=== PATIENT | female | born 1945 | race African-American/Black ===

== ENCOUNTER 2018-03-26 03:10 | Emergency (ER) | payer MEDICARE, MEDICAID ==
[~2018-03-26] VITALS: Ht 165.1 cm; Wt 77.0 kg
[~2018-03-26 03:10] MED LIST: ALBU4TAB6 PO; ASPI-785 PO; ATOR40TA70 PO; BACL20TA PO; BENA40TA9 PO; CALC-4 PO; HYDR25TA PO; IBUP-2029 PO; NIFE30TA94 PO; TOPI25TA48 PO; topamax
[2018-03-26] MEDS ORDERED: KETOROLAC 30MG/ML VIAL IV ONE (08:00)
[2018-03-26 08:10] LABS: BASOPHILS % 0.4 % (0.0-2.0); EOSINOPHILS % 0.4 % (0.0-5.0); HEMATOCRIT. 37.7 % (36.0-48.0); HEMOGLOBIN. 12.5 g/dL (12.0-16.0); LYMPHOCYTES % 32.3 % (20.0-50.0); MEAN CORPUSCULAR HEMOGLOBIN 31.4 pg (28.0-32.0); MEAN CORPUSCULAR VOLUME 94.8 fL (81.0-99.0); MEAN PLATELET VOLUME 8.9 fl (7.4-10.4); MONOCYTES % 6.6 % (2.0-8.0); NEUTROPHILS % 60.3 % (40.0-76.0); PLATELET 191 x1000/uL (130-400); RED BLOOD CELL COUNT 3.98 mill/uL (4.2-5.4); RED CELL DISTRIBUTION WIDTH 16.2 % (11.6-14.6)
[2018-03-26 08:11] LABS: CLARITY URINE CLEAR (CLEAR); COLOR URINE YELLOW (YELLOW); KETONES URINE NEGATIVE (NEGATIVE); LEUKOCYTE ESTERASE URINE TRACE (NEGATIVE); NITRITE URINE NEGATIVE (NEGATIVE); OCCULT BLOOD URINE NEGATIVE (NEGATIVE); PROTEIN URINE NEGATIVE (NEGATIVE); SPECIFIC GRAVITY URINE 1.019 (1.005-1.030)
[2018-03-26 08:15] LABS: CHLORIDE 106 mEq/L (98-107)
[2018-03-26 10:35] VITALS: BP 168/72
== END 2018-03-26 10:40 | disposition home or self-care (01) ==
LOC: ER 03:10
DX: S20.211A Contusion of right front wall of thorax, initial encounter (principal); J44.9 Chronic obstructive pulmonary disease, unspecified; I10 Essential (primary) hypertension; I25.2 Old myocardial infarction; F17.200 Nicotine dependence, unspecified, uncomplicated; W01.0XXA Fall on same level from slipping, tripping and stumbling without subsequent striking against object, initial encounter; Y93.89 Activity, other specified; Y92.89 Other specified places as the place of occurrence of the external cause; Y99.8 Other external cause status; Z90.710 Acquired absence of both cervix and uterus; Z79.82 Long term (current) use of aspirin; Z79.899 Other long term (current) drug therapy
CPT/HCPCS: 36415; 71111; 80053; 81003; 85025; 96374; 99284; J1885

== ENCOUNTER 2018-04-26 06:04 | Emergency (ER) | payer MEDICARE, MEDICAID ==
[~2018-04-26] VITALS: Ht 165.1 cm; Wt 72.0 kg
[2018-04-26] MEDS ORDERED: METHYLPREDNISOLONE SOD SUCC 125 MG/2 ML VIAL IV STA (06:17)
[2018-04-26] MEDS ORDERED: IPRATROPIUM BROMIDE (0.02%) 0.5MG/2.5ML NEB HHN STA (06:17)
[2018-04-26] MEDS: ALBUTEROL (0.083%) 2.5MG/3ML NEB HHN SCH ×3 (06:45→07:30)
[2018-04-26 07:00] LABS: BASOPHILS % 0.5 % (0.0-2.0); HEMATOCRIT. 36.7 % (36.0-48.0); HEMOGLOBIN. 12.1 g/dL (12.0-16.0); LYMPHOCYTES % 33.1 % (20.0-50.0); MEAN CORPUSCULAR HEMOGLOBIN 30.6 pg (28.0-32.0); MEAN CORPUSCULAR VOLUME 92.6 fL (81.0-99.0); MEAN PLATELET VOLUME 9.2 fl (7.4-10.4); MONOCYTES % 9.9 % (2.0-8.0); NEUTROPHILS % 55.5 % (40.0-76.0); PLATELET 167 x1000/uL (130-400); RED BLOOD CELL COUNT 3.96 mill/uL (4.2-5.4); RED CELL DISTRIBUTION WIDTH 16.8 % (11.6-14.6)
[2018-04-26 07:18] LABS: CHLORIDE 110 mEq/L (98-107)
[2018-04-26] MEDS ORDERED: LEVOFLOXACIN 750MG PREMIX 150 ML IV ONE (08:00)
[2018-04-26 08:24] LABS: BG BASE EXCESS -1.4 mmol/L (-2.0-2.0); BG BILEVEL POS AIRWAY PRESSURE 15/5; BG CARBOXYHEMOGLOBIN 0.3 % (0.5-1.5); BG DEOXYHEMOGLOBIN 0.9 % (0.0-5.0); BG FRACTION INSPIRED OXYGEN 50; BG HCO3 ACT 23.2 mmol/L (22.0-26.0); BG METHEMOGLOBIN 0.2 % (0.0-1.5); BG OXYGEN SATURATION 99.1 % (92.0-98.5); BG OXYHEMOGLOBIN 98.6 % (94.0-97.0); BG PCO2 38.4 mmHg (35.0-45.0); BG PH 7.399 (7.350-7.450); BG PO2 248.9 mmHg (75.0-100.0); BG SAMPLE SITE RIGHT RADIAL; BG TOTAL HEMOGLOBIN 11.1 g/dL (12.0-18.0); BG VENT MODE MASK - BIPAP; BG VENT RATE 16 set
[2018-04-26 10:27] VITALS: BP 148/55
== END 2018-04-26 10:46 | disposition left against medical advice (07) ==
LOC: ER 06:04 → EDBEDREQTM 08:14 → EDBEDREQ 08:14 → ER 10:46 → ENRESERV 10:47 → CANRESERV 10:47 → CANBEDREQ 10:57 → SUPCPDRO 13:01
DX: J96.00 Acute respiratory failure, unspecified whether with hypoxia or hypercapnia (principal); J44.1 Chronic obstructive pulmonary disease with (acute) exacerbation; I10 Essential (primary) hypertension; R79.89 Other specified abnormal findings of blood chemistry; J45.909 Unspecified asthma, uncomplicated; Z99.89 Dependence on other enabling machines and devices
CPT/HCPCS: 36415; 36600; 71045; 80053; 82375; 82805; 83880; 84484; 85025; 93005; 94640; 94644; 94660; 96365; 96375; 99291; J1956; J2930; J7611

== ENCOUNTER 2018-07-05 01:54 | Emergency (ER) | payer MEDICARE, MEDICAID ==
[~2018-07-05] VITALS: Ht 165.1 cm; Wt 75.0 kg
[2018-07-05] MEDS ORDERED: IBUPROFEN 600MG TABLET PO SCH (04:21)
[2018-07-05 04:46] VITALS: BP 170/56
== END 2018-07-05 04:49 | disposition home or self-care (01) ==
LOC: ER 01:54
DX: S90.31XA Contusion of right foot, initial encounter (principal); W20.8XXA Other cause of strike by thrown, projected or falling object, initial encounter; Y93.89 Activity, other specified; Y92.092 Bedroom in other non-institutional residence as the place of occurrence of the external cause
CPT/HCPCS: 73630; 99283

== ENCOUNTER 2020-07-15 01:33 | Emergency (ER) | payer MEDICARE, MEDICAID ==
[~2020-07-15] VITALS: Ht 160 cm; Wt 81.0 kg
[2020-07-15] MEDS ORDERED: DIPHENHYDRAMINE 50MG/ML VIAL IV ONE (02:45)
[2020-07-15] MEDS ORDERED: METOCLOPRAMIDE HCL 10MG/2ML VIAL IV ONE (02:45)
[2020-07-15 03:00] LABS: BASOPHILS % 0.1 % (0.0-2.0); EOSINOPHILS % 0.1 % (0.0-5.0); HEMATOCRIT. 33.9 % (36.0-48.0); HEMOGLOBIN. 11.3 g/dL (12.0-16.0); LYMPHOCYTES % 25.6 % (20.0-50.0); MEAN CORPUSCULAR HEMOGLOBIN 30.4 pg (28.0-32.0); MEAN CORPUSCULAR VOLUME 91.6 fL (81.0-99.0); MEAN PLATELET VOLUME 8.9 fl (7.4-10.4); MONOCYTES % 9.8 % (2.0-8.0); NEUTROPHILS % 64.4 % (40.0-76.0); PLATELET 200 x1000/uL (130-400); RED CELL DISTRIBUTION WIDTH 16.4 % (11.6-14.6)
[2020-07-15 03:07] LABS: CHLORIDE 112 mEq/L (98-107)
[2020-07-15] MEDS ORDERED: IOHEXOL-350 100 ML BOTTLE ONE (03:55)
[2020-07-15] MEDS ORDERED: NAPR-1176 MT (05:34)
[2020-07-15 05:52] VITALS: BP 155/58
== END 2020-07-15 06:11 | disposition home or self-care (01) ==
LOC: ER 01:33
DX: G43.909 Migraine, unspecified, not intractable, without status migrainosus (principal); R11.2 Nausea with vomiting, unspecified; I11.0 Hypertensive heart disease with heart failure; I50.9 Heart failure, unspecified; J45.909 Unspecified asthma, uncomplicated; Z90.710 Acquired absence of both cervix and uterus; Z98.890 Other specified postprocedural states; Z79.82 Long term (current) use of aspirin; Z79.899 Other long term (current) drug therapy
CPT/HCPCS: 36415; 70496; 80053; 85025; 93005; 96374; 96375; 99285; J1200; J2765; Q9967

== ENCOUNTER → 2022-11-11 | Day surgery (SDC) | payer MEDICARE, MEDICAID ==
[~2022-11-11] VITALS: Ht 157.5 cm; Wt 70.3 kg
[~2022-11-11] MED LIST changes: +BALANCED SALT IRRIG SOLN COMB1 500ML OP NR; -BENA40TA9 PO; +BENA40TA91 PO; +CYCLOPENTOLATE HCL 1% OPHTH DROPS 2ML LEFTEYE ONE; +FENTANYL CITRATE/PF 50MCG/ML 2ML VIAL ONE; +HYALURONATE SODIUM 10 MG/ML 0.55ML SYRINGE IO ONE; +LACTATED RINGERS 1,000 ML IV SCH; +MIDAZOLAM HCL 2 MG/2 ML VIAL ONE; +NAPR-1176 MT; +PHENYLEPHRINE HCL 10% OPHTH DROPS 5ML LEFTEYE ONE; +TROPICAMIDE 1% OPHTH DROPS 15ML LEFTEYE ONE; +TRYPAN BLUE 0.5 ML DISP.SYRIN IO ONE
== END | disposition home or self-care (01) ==
LOC: OR 10:44
PROVIDERS: ATTEND Ophthalmology
DX: H25.22 Age-related cataract, morgagnian type, left eye (principal); I10 Essential (primary) hypertension; E78.00 Pure hypercholesterolemia, unspecified; I25.10 Atherosclerotic heart disease of native coronary artery without angina pectoris; J44.9 Chronic obstructive pulmonary disease, unspecified; D64.9 Anemia, unspecified; M19.90 Unspecified osteoarthritis, unspecified site; Z79.899 Other long term (current) drug therapy; Z79.82 Long term (current) use of aspirin; Z90.710 Acquired absence of both cervix and uterus; Z98.890 Other specified postprocedural states; Z87.891 Personal history of nicotine dependence; Z82.49 Family history of ischemic heart disease and other diseases of the circulatory system
CPT/HCPCS: 66984; J3010; Q9957; J2250; J3490; A4217; Z7610 ×18; V2632

== ENCOUNTER → 2023-01-20 | Day surgery (SDC) | payer MEDICARE, MEDICAID ==
[~2023-01-20] VITALS: Ht 157.5 cm; Wt 70.3 kg
[~2023-01-20] MED LIST changes: -BACL20TA PO; -BALANCED SALT IRRIG SOLN COMB1 500ML OP NR; +BALANCED SALT IRRIG SOLN COMB1 500ML OP ONE; -CALC-4 PO; -CYCLOPENTOLATE HCL 1% OPHTH DROPS 2ML LEFTEYE ONE; +CYCLOPENTOLATE HCL 1% OPHTH DROPS 2ML RIGHTEYE ONE; +DULO20CA18 PO; +FURO-151 PO; -HYDR25TA PO; +HYDROCODONE/ACETAMINOPHEN 5/325MG TABLET PO NR; -IBUP-2029 PO; +KETOROLAC 30MG/ML VIAL ONE; +METO-539 PO; +NIFE-71 PO; -NIFE30TA94 PO; +ONDANSETRON HCL 4MG/2ML INJ ONE; -PHENYLEPHRINE HCL 10% OPHTH DROPS 5ML LEFTEYE ONE; +PHENYLEPHRINE HCL 10% OPHTH DROPS 5ML RIGHTEYE ONE; +TOPA25 PO; -TROPICAMIDE 1% OPHTH DROPS 15ML LEFTEYE ONE; +TROPICAMIDE 1% OPHTH DROPS 15ML RIGHTEYE ONE; -topamax
[2023-01-20 13:19] VITALS: BP 122/43; PULSE 48; RESP 15
== END | disposition home or self-care (01) ==
LOC: OR 07:10
PROVIDERS: ATTEND Ophthalmology
DX: H25.89 Other age-related cataract (principal); I25.10 Atherosclerotic heart disease of native coronary artery without angina pectoris; I10 Essential (primary) hypertension; E78.00 Pure hypercholesterolemia, unspecified; M19.90 Unspecified osteoarthritis, unspecified site; J44.9 Chronic obstructive pulmonary disease, unspecified; D64.9 Anemia, unspecified; G43.909 Migraine, unspecified, not intractable, without status migrainosus; Z90.710 Acquired absence of both cervix and uterus; Z98.890 Other specified postprocedural states; Z79.82 Long term (current) use of aspirin; Z79.899 Other long term (current) drug therapy; Z87.891 Personal history of nicotine dependence; Z82.49 Family history of ischemic heart disease and other diseases of the circulatory system
CPT/HCPCS: 66984; J3010; Q9957; J1885; J2250; J2405; J3490; A4217; Z7610 ×16; V2632

== ENCOUNTER 2023-08-06 21:08 | Inpatient (IN) | payer MEDICARE, MEDICAID ==
[~2023-08-06] VITALS: Ht 160 cm; Wt 69.9 kg
[~2023-08-06 21:08] MED LIST changes: -BALANCED SALT IRRIG SOLN COMB1 500ML OP ONE; -CYCLOPENTOLATE HCL 1% OPHTH DROPS 2ML RIGHTEYE ONE; -FENTANYL CITRATE/PF 50MCG/ML 2ML VIAL ONE; -HYALURONATE SODIUM 10 MG/ML 0.55ML SYRINGE IO ONE; -HYDROCODONE/ACETAMINOPHEN 5/325MG TABLET PO NR; -KETOROLAC 30MG/ML VIAL ONE; -LACTATED RINGERS 1,000 ML IV SCH; -MIDAZOLAM HCL 2 MG/2 ML VIAL ONE; -ONDANSETRON HCL 4MG/2ML INJ ONE; -PHENYLEPHRINE HCL 10% OPHTH DROPS 5ML RIGHTEYE ONE; -TROPICAMIDE 1% OPHTH DROPS 15ML RIGHTEYE ONE; -TRYPAN BLUE 0.5 ML DISP.SYRIN IO ONE
[2023-08-06 21:53] LABS: BASOPHILS % 0.4 % (0.0-2.0); EOSINOPHILS % 2.8 % (0.0-5.0); HEMATOCRIT. 33.1 % (36.0-48.0); LYMPHOCYTES % 46.8 % (20.0-50.0); MEAN CORPUSCULAR HEMOGLOBIN 29.6 pg (28.0-32.0); MEAN CORPUSCULAR HGB CONC 33.1 g/dL (31.0-37.0); MEAN CORPUSCULAR VOLUME 89.3 fL (81.0-99.0); MEAN PLATELET VOLUME 8.2 fl (7.4-10.4); MONOCYTES % 7.6 % (2.0-8.0); NEUTROPHILS % 42.4 % (40.0-76.0); PLATELET 252 x1000/uL (130-400); RED BLOOD CELL COUNT 3.71 mill/uL (4.2-5.4); RED CELL DISTRIBUTION WIDTH 16.6 % (11.6-14.6); WHITE BLOOD COUNT 5.7 x1000/uL (4.5-11.0)
[2023-08-06 22:00] LABS: CHLORIDE 107 mEq/L (98-107); POTASSIUM 4.1 mEq/L (3.5-5.1); SODIUM 141 mEq/L (136-145)
[2023-08-06 22:01] LABS: CALCIUM 10.7 mg/dL (8.7-10.4); CARBON DIOXIDE 25 mEq/L (21-32)
[2023-08-06 22:06] LABS: CREATININE 1.1 mg/dL (0.6-1.0); GLUCOSE 105 mg/dL (70-105); UREA NITROGEN BLOOD 22 mg/dL (9-23)
[2023-08-06 22:10] LABS: TROPONIN I HIGH SENSITIVITY 208 ng/L (3.0-34)
[2023-08-06] MEDS: ASPIRIN 81MG TABLET PO ONE (22:45)
[2023-08-06] MEDS ORDERED: NITROGLYCERIN 0.4MG TABLET SL SL PRN (22:45)
[2023-08-06] MEDS ORDERED: DIPHENHYDRAMINE 50MG CAPSULE PO ONE (22:45)
[2023-08-06] MEDS: DIPHENHYDRAMINE 25MG CAPSULE PO NR (23:15)
[2023-08-07] VITALS (7 sets, daily range): BP systolic 118–131; BP diastolic 58–85; PULSE 64–74; RESP 12–23; TEMP 97.7–98.7; O2SAT 98
[2023-08-07] MEDS: ENOXAPARIN 80MG/0.8ML SYR SUBCUT ONE (00:30)
[2023-08-07 01:15] LABS: TROPONIN I HIGH SENSITIVITY 195 ng/L (3.0-34)
[2023-08-07] MEDS ORDERED: GUAIFENESIN 200MG/10ML SUGAR FREE UDC PO PRN (03:45)
[2023-08-07] MEDS ORDERED: IPRATROPIUM/ALBUTEROL 0.5-3(2.5)MG/3ML NEB HHN PRN (03:45)
[2023-08-07] MEDS: FUROSEMIDE 100MG/10ML VIAL IVP NR (05:11)
[2023-08-07] MEDS: KETOROLAC 15MG/ML VIAL IV NR (05:12)
[2023-08-07 06:20] LABS: CLARITY URINE CLEAR (CLEAR); COLOR URINE YELLOW (YELLOW); GLUCOSE URINE NEGATIVE (NEGATIVE); KETONES URINE NEGATIVE (NEGATIVE); LEUKOCYTE ESTERASE URINE NEGATIVE (NEGATIVE); NITRITE URINE NEGATIVE (NEGATIVE); OCCULT BLOOD URINE NEGATIVE (NEGATIVE); PH URINE 5.5 (4.5-8.0); PROTEIN URINE NEGATIVE (NEGATIVE); SPECIFIC GRAVITY URINE 1.008 (1.005-1.030); UROBILINOGEN URINE 0.2 E.U./dL (0.2-1.0)
[2023-08-07] MEDS: METHYLPREDNISOLONE SOD SUCC 40MG/ML (ACT-O-VIAL) IV SCH (06:38)
[2023-08-07] MEDS: ENOXAPARIN 40MG/0.4ML SYR SUBCUT SCH (09:08)
[2023-08-07] MEDS: AZITHROMYCIN 500 MG TABLET PO SCH (09:09)
[2023-08-07] MEDS: ASPIRIN 81MG TABLET PO SCH (09:09)
[2023-08-07] MEDS: HYDROCODONE/ACETAMINOPHEN 5/325MG TABLET PO NR (09:10)
[2023-08-07 10:05] LABS: BASOPHILS % 0.2 % (0.0-2.0); EOSINOPHILS % 1.2 % (0.0-5.0); HEMATOCRIT. 35.1 % (36.0-48.0); HEMOGLOBIN. 11.8 g/dL (12.0-16.0); LYMPHOCYTES % 21.9 % (20.0-50.0); MEAN CORPUSCULAR HGB CONC 33.6 g/dL (31.0-37.0); MEAN CORPUSCULAR VOLUME 86.5 fL (81.0-99.0); MEAN PLATELET VOLUME 8.5 fl (7.4-10.4); MONOCYTES % 2.6 % (2.0-8.0); NEUTROPHILS % 74.1 % (40.0-76.0); PLATELET 257 x1000/uL (130-400); RED BLOOD CELL COUNT 4.06 mill/uL (4.2-5.4); RED CELL DISTRIBUTION WIDTH 16.6 % (11.6-14.6); WHITE BLOOD COUNT 5.2 x1000/uL (4.5-11.0)
[2023-08-07 10:53] LABS: CARBON DIOXIDE 27 mEq/L (21-32); CHLORIDE 107 mEq/L (98-107); POTASSIUM 3.7 mEq/L (3.5-5.1); SODIUM 143 mEq/L (136-145)
[2023-08-07 10:54] LABS: CALCIUM 10.6 mg/dL (8.7-10.4)
[2023-08-07 10:57] LABS: FERRITIN 281 ng/mL (10-291)
[2023-08-07 10:58] LABS: IRON 54 ug/dL (50-170)
[2023-08-07 10:59] LABS: GLUCOSE 91 mg/dL (70-105); TRIGLYCERIDE 63 mg/dL (0-150); UREA NITROGEN BLOOD 25 mg/dL (9-23)
[2023-08-07 11:00] LABS: LDL CHOLESTEROL 65 mg/dL (5-100); T4 FREE 1.14 ng/dL (0.89-1.76); THYROID STIMULATING HORMONE 2.31 uIU/mL (0.55-4.78)
[2023-08-07 11:01] LABS: CHOLESTEROL 155 mg/dL (<200); FOLIC ACID (FOLATE) SERUM 12.06 ng/mL (>5.38); HDL CHOLESTEROL 68 mg/dL (>65); TOTAL IRON BINDING CAPACITY 275 ug/dl (250-425)
[2023-08-07 11:13] LABS: VITAMIN B12 SERUM 268 pg/mL (211-911)
[2023-08-07 15:10] LABS: CREATINE KINASE MB FRACTION 0.9 ng/mL (0.5-3.6)
[2023-08-07] MEDS: ONDANSETRON HCL 4MG/2ML INJ IV PRN (18:04)
[2023-08-07] MEDS: DICLOFENAC SODIUM 1% GEL 50GM TOP SCH (18:40)
[2023-08-07 19:29] LABS: CREATINE KINASE MB FRACTION 0.7 ng/mL (0.5-3.6)
[2023-08-07] MEDS: ATORVASTATIN CALCIUM 40MG TABLET PO SCH (20:28)
[2023-08-07] MEDS: FAMOTIDINE 20MG TABLET PO SCH (20:28)
[2023-08-07] MEDS: MAGNESIUM 4 G PREMIX 100 ML IV NR (20:29)
[2023-08-07] MEDS: IPRATROPIUM/ALBUTEROL 0.5-3(2.5)MG/3ML NEB HHN SCH (21:33)
[2023-08-08] VITALS (11 sets, daily range): BP systolic 117–134; BP diastolic 42–79; PULSE 67–94; RESP 15–20; TEMP 97.6–98.4; O2SAT 97–99
[2023-08-08 00:29] LABS: TROPONIN I HIGH SENSITIVITY 192 ng/L (3.0-34)
[2023-08-08] MEDS: HYDROCODONE/ACETAMINOPHEN 5/325MG TABLET PO PRN (03:17)
[2023-08-08 07:13] LABS: BASOPHILS % 0.1 % (0.0-2.0); HEMATOCRIT. 32.7 % (36.0-48.0); HEMOGLOBIN. 11.2 g/dL (12.0-16.0); LYMPHOCYTES % 14.6 % (20.0-50.0); MEAN CORPUSCULAR HEMOGLOBIN 29.3 pg (28.0-32.0); MEAN CORPUSCULAR HGB CONC 34.2 g/dL (31.0-37.0); MEAN CORPUSCULAR VOLUME 85.7 fL (81.0-99.0); MEAN PLATELET VOLUME 8.8 fl (7.4-10.4); MONOCYTES % 1.9 % (2.0-8.0); NEUTROPHILS % 83.4 % (40.0-76.0); PLATELET 240 x1000/uL (130-400); RED BLOOD CELL COUNT 3.81 mill/uL (4.2-5.4); RED CELL DISTRIBUTION WIDTH 16.2 % (11.6-14.6); WHITE BLOOD COUNT 6.7 x1000/uL (4.5-11.0)
[2023-08-08 07:17] LABS: CARBON DIOXIDE 23 mEq/L (21-32); CHLORIDE 105 mEq/L (98-107); POTASSIUM 3.9 mEq/L (3.5-5.1); SODIUM 138 mEq/L (136-145)
[2023-08-08 07:22] LABS: CREATININE 1.1 mg/dL (0.6-1.0); GLUCOSE 178 mg/dL (70-105)
[2023-08-08 07:23] LABS: UREA NITROGEN BLOOD 35 mg/dL (9-23)
[2023-08-08 07:25] LABS: PHOSPHORUS 3.5 mg/dL (2.5-4.9)
[2023-08-08] MEDS: DOCUSATE SODIUM 100MG CAPSULE PO PRN (08:37)
[2023-08-08] MEDS: MAGNESIUM/ALUMINUM HYDROXIDE/SIMETHICONE 30ML UDC PO PRN (08:38)
[2023-08-08] MEDS ORDERED: NALOXONE HCL 0.4MG/ML VIAL IV PRN (15:00)
[2023-08-08] MEDS: DULOXETINE HCL 20MG DR CAPSULE PO SCH (17:51)
[2023-08-08] MEDS: TOPIRAMATE 25MG TABLET PO SCH (17:51)
[2023-08-08] MEDS ORDERED: IOHEXOL-350 100 ML BOTTLE ONE (20:31)
[2023-08-09] VITALS (8 sets, daily range): BP systolic 118–133; BP diastolic 49–60; PULSE 75–94; RESP 17–21; TEMP 97.9–98.6; O2SAT 98–99
[2023-08-09 06:33] LABS: BASOPHILS % 0.1 % (0.0-2.0); HEMATOCRIT. 27.9 % (36.0-48.0); HEMOGLOBIN. 9.7 g/dL (12.0-16.0); LYMPHOCYTES % 12.7 % (20.0-50.0); MEAN CORPUSCULAR HEMOGLOBIN 29.8 pg (28.0-32.0); MEAN CORPUSCULAR HGB CONC 34.7 g/dL (31.0-37.0); MEAN CORPUSCULAR VOLUME 85.9 fL (81.0-99.0); MEAN PLATELET VOLUME 8.9 fl (7.4-10.4); MONOCYTES % 2.9 % (2.0-8.0); NEUTROPHILS % 84.3 % (40.0-76.0); PLATELET 234 x1000/uL (130-400); RED BLOOD CELL COUNT 3.25 mill/uL (4.2-5.4); RED CELL DISTRIBUTION WIDTH 16.4 % (11.6-14.6); WHITE BLOOD COUNT 8.1 x1000/uL (4.5-11.0)
[2023-08-09 06:36] LABS: CALCIUM 9.7 mg/dL (8.7-10.4); CHLORIDE 106 mEq/L (98-107); POTASSIUM 4.6 mEq/L (3.5-5.1); SODIUM 139 mEq/L (136-145)
[2023-08-09 06:37] LABS: CARBON DIOXIDE 24 mEq/L (21-32)
[2023-08-09 06:42] LABS: CREATININE 1.1 mg/dL (0.6-1.0); GLUCOSE 124 mg/dL (70-105); UREA NITROGEN BLOOD 37 mg/dL (9-23)
[2023-08-09 06:45] LABS: PHOSPHORUS 3.2 mg/dL (2.5-4.9)
[2023-08-09] MEDS: ACETAMINOPHEN 325MG TABLET PO PRN (09:07)
[2023-08-09] MEDS: DEXAMETHASONE 10 MG/ML VIAL IV NR (13:00)
[2023-08-09 13:31] LABS: CREATINE KINASE MB FRACTION 0.9 ng/mL (0.5-3.6)
[2023-08-09 14:37] LABS: CREATINE KINASE 58 IU/L (34-145)
[2023-08-09 18:14] LABS: CREATINE KINASE MB FRACTION 0.7 ng/mL (0.5-3.6)
[2023-08-09 23:55] LABS: CREATINE KINASE 47 IU/L (34-145)
[2023-08-10] VITALS: BP 139/62; PULSE 66; RESP 17; TEMP 97.8
[2023-08-10 00:54] LABS: CREATINE KINASE MB FRACTION 0.8 ng/mL (0.5-3.6)
[2023-08-10 04:00] VITALS: BP 148/61; PULSE 64; RESP 15; TEMP 97.9
[2023-08-10 07:32] LABS: LYMPHOCYTES % 22.4 % (20.0-50.0); MEAN CORPUSCULAR HEMOGLOBIN 29.9 pg (28.0-32.0); MEAN CORPUSCULAR HGB CONC 34.5 g/dL (31.0-37.0); MEAN CORPUSCULAR VOLUME 86.8 fL (81.0-99.0); MEAN PLATELET VOLUME 8.8 fl (7.4-10.4); MONOCYTES % 2.2 % (2.0-8.0); NEUTROPHILS % 75.4 % (40.0-76.0); PLATELET 237 x1000/uL (130-400); RED BLOOD CELL COUNT 3.34 mill/uL (4.2-5.4); RED CELL DISTRIBUTION WIDTH 16.8 % (11.6-14.6); WHITE BLOOD COUNT 5.6 x1000/uL (4.5-11.0)
[2023-08-10 07:48] LABS: CALCIUM 9.5 mg/dL (8.7-10.4); POTASSIUM 5.2 mEq/L (3.5-5.1)
[2023-08-10 07:55] LABS: CREATININE 1.1 mg/dL (0.6-1.0)
[2023-08-10 08:00] VITALS: BP 144/68; PULSE 60; RESP 18; TEMP 98.2
[2023-08-10] MEDS: SODIUM POLYSTYRENE SULFONATE 15 G/60 ML BOT PO NR ×2 (08:15→18:39)
[2023-08-10] MEDS: KETOROLAC 15MG/ML VIAL IV PRN (10:33)
[2023-08-10] MEDS ORDERED: FENTANYL CITRATE/PF 50MCG/ML 2ML VIAL ONE (12:24)
[2023-08-10] MEDS ORDERED: LIDOCAINE HCL 1% 20ML VIAL (Pyxis) INJ ONE (12:24)
[2023-08-10] MEDS ORDERED: DIPHENHYDRAMINE 50MG/ML VIAL ONE (12:24)
[2023-08-10] MEDS ORDERED: HEPARIN 1000 UNITS/ML 10ML ONE (12:24)
[2023-08-10] MEDS ORDERED: MIDAZOLAM HCL 2 MG/2 ML VIAL ONE (12:24)
[2023-08-10] MEDS ORDERED: VERAPAMIL HCL 2.5 MG/1 ML 2ML VIAL IV ONE (12:40)
[2023-08-10] MEDS ORDERED: IODIXANOL 320MG/ML 100 ML BOTTLE IV ONE (13:26)
[2023-08-10] MEDS ORDERED: ACETAMINOPHEN 325MG TABLET PO PRN (13:45)
[2023-08-10] MEDS ORDERED: ATROPINE SULFATE 1MG/10ML SYR IV PRN (13:45)
[2023-08-10] MEDS: ACETAMINOPHEN 325MG TABLET PO SCH (15:59)
[2023-08-10] MEDS: FUROSEMIDE 40MG/4ML VIAL IVP SCH (15:59)
[2023-08-10 16:00] VITALS: BP 127/68; PULSE 85; RESP 18; TEMP 98.1
[2023-08-10 20:00] VITALS: BP 141/70; PULSE 86; RESP 20; TEMP 98
[2023-08-10] MEDS: TRAMADOL HCL/ACETAMINOPHEN 37.5/325MG TABLET PO PRN (22:01)
[2023-08-11] VITALS (7 sets, daily range): BP systolic 139–170; BP diastolic 68–89; PULSE 72–83; RESP 16–20; TEMP 97.9–98.6; O2SAT 98
[2023-08-11 07:09] LABS: HEMATOCRIT. 29.7 % (36.0-48.0); HEMOGLOBIN. 10.2 g/dL (12.0-16.0); LYMPHOCYTES % 26.3 % (20.0-50.0); MEAN CORPUSCULAR HEMOGLOBIN 29.7 pg (28.0-32.0); MEAN CORPUSCULAR HGB CONC 34.3 g/dL (31.0-37.0); MEAN CORPUSCULAR VOLUME 86.5 fL (81.0-99.0); MEAN PLATELET VOLUME 8.9 fl (7.4-10.4); MONOCYTES % 5.6 % (2.0-8.0); NEUTROPHILS % 68.1 % (40.0-76.0); PLATELET 249 x1000/uL (130-400); RED BLOOD CELL COUNT 3.43 mill/uL (4.2-5.4); RED CELL DISTRIBUTION WIDTH 16.4 % (11.6-14.6); WHITE BLOOD COUNT 5.1 x1000/uL (4.5-11.0)
[2023-08-11 07:22] LABS: CALCIUM 8.6 mg/dL (8.7-10.4)
[2023-08-11 07:28] LABS: CREATININE 1.3 mg/dL (0.6-1.0)
[2023-08-11] MEDS ORDERED: AZIT500T8 PO (12:17)
[2023-08-12] MEDS ORDERED: FUROSEMIDE 20MG/2ML VIAL IVP SCH (09:00)
== END 2023-08-11 19:51 | disposition home or self-care (01) | DRG 190 ==
LOC: ER 21:08 → EDBEDREQTM 08-07 00:30 → EDBEDREQ 08-07 00:30 → 3WST 08-07 03:41
PROVIDERS: ADMIT Preventive Medicine Clinical Informatics; ATTEND Preventive Medicine Clinical Informatics
PROC: 4A023N7 Measurement of Cardiac Sampling and Pressure, Left Heart, Percutaneous Approach (ICD-10-PCS; principal; 2023-08-10)
PROC: B211YZZ Fluoroscopy of Multiple Coronary Arteries using Other Contrast (ICD-10-PCS; 2023-08-10)
DX: I21.4 Non-ST elevation (NSTEMI) myocardial infarction (principal); J96.01 Acute respiratory failure with hypoxia; I13.0 Hypertensive heart and chronic kidney disease with heart failure and stage 1 through stage 4 chronic kidney disease, or unspecified chronic kidney disease; I50.32 Chronic diastolic (congestive) heart failure; J44.1 Chronic obstructive pulmonary disease with (acute) exacerbation; D64.9 Anemia, unspecified; M79.89 Other specified soft tissue disorders; M17.0 Bilateral primary osteoarthritis of knee; E78.5 Hyperlipidemia, unspecified; E83.42 Hypomagnesemia; G43.909 Migraine, unspecified, not intractable, without status migrainosus; I25.10 Atherosclerotic heart disease of native coronary artery without angina pectoris; K59.00 Constipation, unspecified; N18.2 Chronic kidney disease, stage 2 (mild); E87.5 Hyperkalemia; Z86.718 Personal history of other venous thrombosis and embolism; Z87.891 Personal history of nicotine dependence; Z90.49 Acquired absence of other specified parts of digestive tract; Z90.710 Acquired absence of both cervix and uterus; Z79.899 Other long term (current) drug therapy; Z79.82 Long term (current) use of aspirin
CPT/HCPCS: 36415; 71045; 71275; 80048; 80061; 81003; 82550; 82553; 82607; 82728; 82746; 83036; 83540; 83550; 83605; 83735; 83880; 84100; 84145; 84439; 84443; 84484; 85025; 85379; 93005; 93306; 93458; 93970; 94640; 99285; C1769; C1887; C1893; J1100; J1200; J1644; J1650; J1885; J1940; J2250; J2405; J2920; J3010; J3475; J3490; Q0163; Q9967